=== PATIENT | male | born 1975 | race Caucasian/White ===

== ENCOUNTER → 2016-12-16 | Outpatient (CLI) | payer OTHER | LOC: HEART 5 10:00 | DX: R07.9 Chest pain, unspecified (principal); R06.02 Shortness of breath | CPT/HCPCS: 93306 ==

== ENCOUNTER → 2017-01-10 | Outpatient (CLI) | payer OTHER | LOC: RAD 12:41 | DX: M54.2 Cervicalgia (principal); M54.9 Dorsalgia, unspecified; M25.512 Pain in left shoulder; R05 Cough; M47.896 Other spondylosis, lumbar region; M47.894 Other spondylosis, thoracic region | CPT/HCPCS: 71020; 72050; 72070; 72110; 73030 ==